=== PATIENT | female | born 1940 | race Caucasian/White ===

== ENCOUNTER 2019-03-06 16:18 | Emergency (ER) | payer OTHER ==
[~2019-03-06] VITALS: Ht 165.1 cm; Wt 68.0 kg
[~2019-03-06 16:18] MED LIST: LISI-607; METF500T
[2019-03-06] MEDS ORDERED: IV NS 0.9% 1,000 ML BAG IV ONE (17:00)
[2019-03-06] MEDS ORDERED: ONDANSETRON HCL/PF 4 MG/2 ML VIAL IVP ONE (17:00)
[2019-03-06] MEDS ORDERED: PANTOPRAZOLE 40 MG VIAL IV ONE (17:00)
[2019-03-06] MEDS ORDERED: DIATR MEGLU/DIATRIZOATE SODIUM 30 ML BOTTLE (GASTROGRAPHIN) ONE (17:00)
[2019-03-06] MEDS ORDERED: PANTOPRAZOLE 40 MG VIAL ONE (17:02)
[2019-03-06] MEDS ORDERED: ONDANSETRON HCL/PF 4 MG/2 ML VIAL ONE (17:03)
[2019-03-06 17:07] LABS: BASOPHILS # (AUTO) 0.1 /CMM (0.0-0.2); BASOPHILS % (AUTO) 0.6 % (0.0-2.0); EOSINOPHILS % (AUTO) 0.4 % (0.0-6.0); HEMATOCRIT 42 % (33-45); HEMOGLOBIN 14.3 g/dL (11.5-14.8); LYMPHOCYTES # (AUTO) 1.9 /CMM (0.8-4.8); LYMPHOCYTES % (AUTO) 15.1 % (20.0-44.0); MEAN CORPUSCULAR HGB CONC 34 g/dl (31.0-36.0); MEAN CORPUSCULAR VOLUME 93 fL (82-100); MONOCYTES # (AUTO) 0.6 /CMM (0.1-1.30); NEUTROPHILS # (AUTO) 10.1 /CMM (1.8-8.9); NEUTROPHILS % (AUTO) 78.9 % (43.0-81.0); PLATELET COUNT (AUTO) 225 /CMM (150-450); RED BLOOD CELL COUNT(AUTO) 4.55 MIL/uL (4.0-5.2); WHITE BLOOD COUNT (AUTO) 12.8 K/uL (4.3-11.0)
[2019-03-06 17:16] LABS: CALCIUM, SERUM 9.3 mg/dL (8.5-10.1); CARBON DIOXIDE 30 mmol/L (21-32); CHLORIDE 99 mmol/L (98-107); CREATININE 0.6 mg/dL (0.6-1.3); GLUCOSE 148 mg/dL (74-106); POTASSIUM 4.1 mmol/L (3.5-5.1); SODIUM SERUM 137 mmol/L (136-145); UREA NITROGEN, BLOOD 11 mg/dL (7-18)
[2019-03-06 17:21] LABS: ALANINE AMINOTRANSFERASE 16 U/L (12-78); ALKALINE PHOSPHATASE 84 U/L (46-116); ASPARTATE AMINOTRANSFERASE 15 U/L (15-37); BILIRUBIN,DIRECT 0.2 mg/dL (0.0-0.2); BILIRUBIN,TOTAL 0.5 mg/dL (0.2-1.0); LIPASE 136 U/L (73-393); TOTAL PROTEIN, SERUM 7.5 g/dL (6.4-8.2)
--- NOTE | 2019-03-06 18:30 | NUR ---
Appears comfortable conversant w/family at bedside. No acute changes. No obvious distress. Aware of plan of care
--- NOTE | 2019-03-06 19:23 | NUR ---
Nurse Knowledge Report/Endorsed to RN Felix for continuity of care.
--- NOTE | 2019-03-06 19:38 | NUR ---
URINE COLLECTED AND SENT TO LAB.
--- NOTE | 2019-03-06 20:40 | NUR ---
CALLED [facility], PRESENTED PT, AWAITING CALL BACK FROM [facility]
[2019-03-06] MEDS ORDERED: PIPERACILLIN /TAZOBACTAM 3.375 G VIAL IV ONE (21:00)
[2019-03-06] MEDS ORDERED: PIPERACILLIN /TAZOBACTAM 3.375 G in IV D5W 50 ML IV ONE (21:00)
[2019-03-06 22:34] LABS: APPEARANCE,URINE Clear (CLEAR); BILIRUBIN,URINE Negative (NEGATIVE); BLOOD, URINE Trace-lysed Ery/uL (NEGATIVE); COLOR,URINE Yellow (YELLOW); KETONES,URINE Negative (NEGATIVE); LEUKOCYTE ESTERASE ,URINE Negative (NEGATIVE); NITRITE, URINE Negative (NEGATIVE); PROTEIN,URINE Negative (NEGATIVE); UGLUCOSE Negative (NEGATIVE); UROBILINOGEN,URINE 0.2 EU/dL (0.2)
[2019-03-06 22:36] LABS: BACTERIA,URINE Few /HPF (None Seen); SQUAMOUS EPITHELIAL CELL,UR Few /HPF (None Seen)
[2019-03-06 22:44] VITALS: BP 138/81
--- NOTE | 2019-03-06 22:47 | NUR ---
PT WILL BE TRANSFERRED TO [facility] ER ACCEPTING : DR. TUTTLE NUMBER FOR REPORT: [phone] ETA [phone]
--- NOTE | 2019-03-06 22:59 | NUR ---
FAXED UA RESULTS TO [facility] AT [facility] [phone]
--- NOTE | 2019-03-06 23:06 | NUR ---
REPORT GIVEN TO ELHAM LAST.
--- NOTE | 2019-03-06 23:12 | NUR ---
RECEIVED CALL FROM [facility], PT ACCEPTED TO [facility] ER BY , NUMBER TO GIVE REPORT IS [phone], [facility] SHOULD ARRIVE BY 0000
== END 2019-03-07 01:23 | disposition short-term general hospital (02) ==
LOC: ER 16:18
DX: K52.9 Noninfective gastroenteritis and colitis, unspecified (principal); I10 Essential (primary) hypertension; E11.9 Type 2 diabetes mellitus without complications; Z90.49 Acquired absence of other specified parts of digestive tract; Z88.5 Allergy status to narcotic agent; Z79.899 Other long term (current) drug therapy; Z79.84 Long term (current) use of oral hypoglycemic drugs
CPT/HCPCS: 36415; 71045; 74176; 80048; 80076; 81001; 83690; 84484; 85025; 93005; 96361; 96365; 96375; 99285; C9113; J2405; J2543 ×2; J7030; J7060; Q9963; 81000-TC

== ENCOUNTER 2025-05-19 00:25 | Emergency (ER) | payer OTHER, MEDICAID ==
[~2025-05-19] VITALS: Ht 165.1 cm; Wt 81.6 kg
[~2025-05-19 00:25] MED LIST changes: -LISI-607; +LISI-768
[2025-05-19 01:17] LABS: PLATELET COUNT (AUTO) 276 K/uL (150-450); RED BLOOD CELL COUNT(AUTO) 4.25 MIL/uL (4.0-5.2); RED CELL DISTRIBUTION WIDTH 13.0 % (11.5-15.0); WHITE BLOOD COUNT (AUTO) 15.9 K/uL (4.3-11.0)
[2025-05-19 01:24] LABS: CALCIUM, SERUM 9.2 mg/dL (8.5-10.1); CREATININE 0.6 mg/dL (0.6-1.3); SODIUM SERUM 131.0 mmol/L (136-145); UREA NITROGEN, BLOOD 22.0 mg/dL (7-18)
[2025-05-19 01:29] LABS: INR 1.1 (0.91-1.10)
[2025-05-19] MEDS ORDERED: FENTANYL PF 100MCG/2ML AMPUL ONE ×2 (02:19→04:57)
[2025-05-19] MEDS: FENTANYL PF 100MCG/2ML AMPUL IV ONE ×2 (02:24→05:01)
[2025-05-19 05:26] VITALS: BP 141/82; TEMP 97.7; O2SAT 95
== END 2025-05-19 05:27 ==
LOC: ER 00:40
DX: S72.142A Displaced intertrochanteric fracture of left femur, initial encounter for closed fracture (principal); D72.829 Elevated white blood cell count, unspecified; I10 Essential (primary) hypertension; E11.9 Type 2 diabetes mellitus without complications; I45.10 Unspecified right bundle-branch block; Z88.5 Allergy status to narcotic agent; Z60.2 Problems related to living alone; W01.0XXA Fall on same level from slipping, tripping and stumbling without subsequent striking against object, initial encounter; Y93.89 Activity, other specified; Y92.89 Other specified places as the place of occurrence of the external cause; Y99.8 Other external cause status
CPT/HCPCS: 99291; 96374; 93005; 71045; 96376; 73503; 85025; 80048; 36415; 85730; J3010 ×2; 73502